=== PATIENT | female | born 1995 | race American Indian/Alaskan Native ===

== ENCOUNTER 2020-05-10 00:43 | Outpatient (CLI) | payer BC, MEDICAID ==
[2020-05-10 00:59] VITALS: BP 120/64
[2020-05-10] MEDS ORDERED: LACTATED RINGERS 1,000 ML ONE (01:29)
[2020-05-10] MEDS ORDERED: LACTATED RINGERS 1,000 ML IV ONE (01:42)
[2020-05-10 01:52] LABS: Basophils % (Auto) 0.6 % (0.0-1.8); Eosinophils # (Auto) 0.2 K/mm3 (0.0-0.4); Eosinophils % (Auto) 2.3 % (0.0-4.3); Hematocrit 29.3 % (30.3-42.9); Hemoglobin 9.7 gm/dl (10.1-14.3); Lymphocytes # (Auto) 2.6 K/mm3 (1.2-5.4); Mean Corpuscular HGB Conc 33 % (30-34); Mean Corpuscular Volume 87 fl (79-97); Monocytes # (Auto) 0.6 K/mm3 (0.0-0.8); Platelet Count 209 K/mm3 (140-440); Red Blood Count 3.35 M/mm3 (3.65-5.03); Red Cell Distribution Width 14.4 % (13.2-15.2)
[2020-05-10 02:11] LABS: Alanine Aminotransferase 7 units/L (7-56); Albumin 3.4 g/dL (3.9-5); Blood Urea Nitrogen 7 mg/dL (7-17); Calcium 8.8 mg/dL (8.4-10.2); Hemolysis Index 7
[2020-05-10 02:16] LABS: BUN/Creatinine Ratio 14
== END 2020-05-10 02:27 | disposition home or self-care (01) ==
LOC: TRG 00:43 → APU 00:57 → TRG 02:27
PROVIDERS: ATTEND Obstetrics & Gynecology
DX: O62.9 Abnormality of forces of labor, unspecified (principal); O21.2 Late vomiting of pregnancy; O26.893 Other specified pregnancy related conditions, third trimester; R19.7 Diarrhea, unspecified; Z3A.35 35 weeks gestation of pregnancy
CPT/HCPCS: 36415; 59025; 80053; 85025; J7120; 96360

== ENCOUNTER 2020-05-19 17:12 | Outpatient (CLI) | payer BC, MEDICAID ==
[2020-05-19 17:50] VITALS: BP 121/76
[2020-05-19] MEDS ORDERED: LACTATED RINGERS 1,000 ML IV SCH (18:00)
[2020-05-19 18:29] LABS: Bacteria,Urine 1+ /HPF (Negative); Bilirubin,Urine NEG (Negative); Blood,Urine NEG (Negative); Color,Urine Yellow (Yellow); Mucus,Urine 1+ /HPF; Protein,Urine <15 mg/dL mg/dL (Negative)
== END 2020-05-19 19:29 | disposition home or self-care (01) ==
LOC: TRG 17:12 → APU 17:13 → TRG 19:29
PROVIDERS: ATTEND Obstetrics & Gynecology
DX: O47.03 False labor before 37 completed weeks of gestation, third trimester (principal); Z3A.36 36 weeks gestation of pregnancy
CPT/HCPCS: 59025; 81001

== ENCOUNTER 2020-05-25 14:48 | Outpatient (CLI) | payer BC, MEDICAID ==
[2020-05-25 16:58] VITALS: BP 123/77
--- NOTE | 2020-05-25 17:57 | Ultrasound Report ---
US OB limited INDICATION: TERRA. Premature rupture of membranes TECHNIQUE: Transabdominal. COMPARISON: None available. FINDINGS: There is a single intrauterine . Heart Rate: 173 beats per minute. Position: cephalic. Amniotic Fluid Volume: normal Amniotic Fluid Index (TERRA) in cm (if calculated): 11. IMPRESSION: 1. Amniotic fluid is normal. Signer Name: Arnulfo Wiley MD Signed: 05/25/2020 5:52 PM Workstation Name: [id number]
== END 2020-05-25 19:16 | disposition home or self-care (01) ==
LOC: TRG 14:48 → APU 14:50 → TRG 19:16
PROVIDERS: ATTEND Obstetrics & Gynecology
DX: O41.8X30 Other specified disorders of amniotic fluid and membranes, third trimester, not applicable or unspecified (principal); Z3A.37 37 weeks gestation of pregnancy
CPT/HCPCS: 59025; 76815; Q0177

== ENCOUNTER 2020-06-02 22:01 | Inpatient (IN) | payer BC, MEDICAID ==
[2020-06-02] MEDS ORDERED: AMPICILLIN/NS 2 GM/100 ML 2 GM/100 ML BAG IV ONE (22:46)
[2020-06-02] MEDS ORDERED: ONDANSETRON 4 MG/2 ML INJ IV PRN (22:46)
[2020-06-02] MEDS ORDERED: ACETAMINOPHEN 325 MG TAB PO PRN (22:46)
[2020-06-02] MEDS ORDERED: miSOPROStol 200 MCG TAB PR PRN (22:46)
[2020-06-02] MEDS ORDERED: BUTORPHANOL 2 MG/1 ML INJ IV PRN (22:46)
[2020-06-02] MEDS ORDERED: ePHEDrine SULFATE 50 MG/1 ML INJ IV PRN (22:46)
[2020-06-02] MEDS ORDERED: METHYLERGONOVINE MALEATE 0.2 MG/ML VIAL IM PRN (22:46)
[2020-06-02] MEDS ORDERED: LIDOCAINE (2%) 20 MG/1 ML VIAL 20 ML MDV INFILTRATI ONE (22:46)
[2020-06-02] MEDS ORDERED: fentaNYL 100 MCG/2 ML INJ IV PRN (22:46)
[2020-06-02] MEDS ORDERED: TERBUTALINE 1 MG/1 ML INJ SUB-Q PRN (22:46)
[2020-06-02] MEDS ORDERED: MINERAL OIL 30 ML ORAL LIQD PO PRN (22:46)
[2020-06-02] MEDS ORDERED: OXYTOCIN DRIP 30 UNITS/500 ML BAG IV SCH ×2 (23:00)
[2020-06-02] MEDS ORDERED: LACTATED RINGERS 1,000 ML IV SCH (23:00)
[2020-06-02 23:38] LABS: Hematocrit 31.2 % (30.3-42.9); Hemoglobin 10.2 gm/dl (10.1-14.3); Mean Corpuscular HGB Conc 33 % (30-34); Mean Corpuscular Volume 84 fl (79-97); Platelet Count 237 K/mm3 (140-440); Red Blood Count 3.72 M/mm3 (3.65-5.03); Red Cell Distribution Width 15.7 % (13.2-15.2)
[2020-06-03] MEDS ORDERED: AZITHROMYCIN 250 MG TAB PO ONE (00:57)
[2020-06-03] MEDS ORDERED: ePHEDrine SULFATE 50 MG/1 ML INJ IV PRN (00:59)
[2020-06-03] MEDS ORDERED: NALOXONE 2 MG/2 ML INJ IV PRN (00:59)
[2020-06-03] MEDS ORDERED: fentaNYL-BUPIV 2 MCG/ML-0.125% 200 MCG/100 ML BAG EPIDURAL SCH (01:00)
--- NOTE | 2020-06-03 01:00 | Anesthesia Consultation ---
Anesthesia Consult and Med Hx Date of service: 06/03/20 - Airway Anesthetic Teeth Evaluation: Good ROM Head & Neck: Adequate Mental/Hyoid Distance: Adequate Mallampati Class: Class II Intubation Access Assessment: Probably Good - Pulmonary Exam CTA: Yes - Cardiac Exam Cardiac Exam: RRR - Pre-Operative Health Status ASA Pre-Surgery Classification: ASA2 Proposed Anesthetic Plan: Epidural - Pulmonary Hx Asthma: Yes COPD: No Hx Pneumonia: No - Cardiovascular System Hx Hypertension: No - Central Nervous System Hx Seizures: No Hx Psychiatric Problems: No - Endocrine Hx Renal Disease: No Hx End Stage Renal Disease: No Hx Hypothyroidism: No Hx Hyperthyroidism: No - Hematic Hx Anemia: No Hx Sickle Cell Disease: No - Other Systems Hx Alcohol Use: No
--- NOTE | 2020-06-03 01:12 | History and Physical Report ---
History of Present Illness Date of examination: 06/03/20 Date of admission: 06/02/20 22:46 Chief complaint: my water, contractions History of present illness: Pt is a 24 year old female KELLI 06/11/20 at 38w6d who presents with rupture of membranes at 2014 pm 06/02/20 and regular painful contractions. She denies vaginal bleeding. She has had care at [facility] since 10 wks complicated by history of previous x 1, prior successful , quad screen positive for trisomy 21 with low risk NIPT, positive chlamydia test on 05/18/20, and positive GBS status. 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 History: chlamydia (positive test 05/18/20) Family/Genetic History: none Social history: no significant social history - Obstetrical History Expected Date of Delivery: 06/11/20 Actual Gestation: 38 Week(s) 6 Day(s) : 3 Para: 2 Hx # Term Pregnancies: 1 Number of Pregnancies: 1 Spontaneous Abortions: 0 Induced : 0 Number of Living Children: 2 Medications and Allergies Allergies Allergy/AdvReac Type Severity Reaction Status Date / Time No Known Allergies Allergy Verified 05/19/20 17:52 Home Medications Medication Instructions Recorded Confirmed Last Taken Type No Known Home Medications [No 06/02/20 06/02/20 Unknown History Reported Home Medications] Active Meds: Active Medications Acetaminophen (Tylenol) 650 mg PO Q4H PRN PRN Reason: Pain, Mild (1-3) Butorphanol Tartrate (Stadol) 2 mg IV Q2H PRN PRN Reason: Pain , Severe (7-10) Ephedrine Sulfate (Ephedrine Sulfate) 10 mg IV Q2M PRN PRN Reason: Hypotension Fentanyl (Sublimaze) 100 mcg IV Q2H PRN PRN Reason: Pain,Severe (7-10) LABOR PAIN Oxytocin/Sodium Chloride (Pitocin/Ns 30 Unit/500ml) 30 units in 500 mls @ 2 mls/hr IV TITR SOFIA; Protocol Lactated Ringer's (Lactated Ringers) 1,000 mls @ 125 mls/hr IV DIRECT SOFIA Last Admin: 06/02/20 23:27 Dose: 125 mls/hr Documented by: Oxytocin/Sodium Chloride (Pitocin/Ns 30 Unit/500ml) 30 units in 500 mls @ 40 mls/hr IV TITR SOFIA; Protocol Ampicillin Sodium (Ampicillin/Ns 1 Gm/50 Ml) 1 gm in 50 mls @ 100 mls/hr IV Q4HR SOFIA; Protocol Fentanyl/Bupivacaine/Sodium Chlor (Fentanyl-Bupiv 2 Mcg/Ml-0.125%) 200 mcg in 100 mls @ 12 mls/hr EPIDURAL TITR SOFIA; Protocol Methylergonovine Maleate (Methergine) 0.2 mg IM ONCE PRN PRN Reason: Uterine Bleeding Mineral Oil (Mineral Oil) 30 ml PO QHS PRN PRN Reason: Constipation Misoprostol (Cytotec) 800 mcg WI ONCE PRN PRN Reason: Uterine Bleeding Naloxone HCl (Naloxone) 0.2 mg IV Q5M PRN PRN Reason: Respiratory sedation Ondansetron HCl (Zofran) 4 mg IV Q8H PRN PRN Reason: Nausea And Vomiting Terbutaline Sulfate (Brethine) 0.25 mg SUB-Q ONCE PRN PRN Reason: Hyperstimulation/Hypertonicity Review of Systems All systems: negative - Vital Signs Vital signs: Vital Signs Pulse Ox 84 05/25/20 18:15 Temp Pulse Resp BP Pulse Ox 98.7 F 95 H 16 129/79 100 06/02/20 22:27 06/03/20 01:00 06/02/20 22:27 06/03/20 01:00 06/03/20 00:57 - Physical Exam Breasts: Positive: deferred Abdomen: Positive: soft (gravid ) Uterus: Positive: enlarged (gravid ) Extremities: Positive: normal - Obstetrical FHR: auscultation normal Uterine Contraction Monitor Mode: External Cervical Dilatation: 5 (per RN on admission ) Uterine Contraction Pattern: Regular Uterine Tone Measurement Phase: Resting Uterine Contraction Intensity: Moderate Results Result Diagrams: 06/02/20 23:00 Abnormal lab results 06/02/20 Range/Units 23:00 MCH 27 L (28-32) pg RDW 15.7 H (13.2-15.2) % All other labs normal. Assessment and Plan A: IUP at 38w6d SROM Active Labor Previous x 1 Successful Chlamydia positive 05/18/20 GBS Positive P: Admit to labor and delivery Azithromycin 1g PO AROM- clear fluid. IUPC placed Ampicillin for GBS prophylaxis Routine intrapartum care
--- NOTE | 2020-06-03 01:15 | Progress Note ---
Labor Epidural - Labor Epidural Start Time: 01:05 Stop Time: 01:15 Performed by:: JAISON PARSONS Procedure: Patient is requesting epidural for labor pain. H&P, and labs reviewed. Procedure explained, questions answered, consent obtained. Patient in sitting position with blood pressure cuff and pulse ox on and working. Timeout performed immediately before start of procedure. Sterile betadine prep/drape. 3 mL 1% lidocaine skin wheal at L[3]-L[4]. 18-gauge IQcard epidural needle advanced to [id number] with saline at [7] cm. Epidural dexmedetomidine [30] mcg administered. Epidural catheter advanced to [12] cm, negative aspiration for blood and csf, negative test dose 3 ml 1.5% lidocaine with epinephrine. Sterile steri-strips and tegaderm applied, followed by tape reinforcement. Patient tolerated procedure well. Liyah LOPEZ
[2020-06-03] MEDS ORDERED: AMPICILLIN/NS 1 GM/50 ML 1 GM/50 ML BAG IV SCH (02:48)
--- NOTE | 2020-06-03 04:19 | Procedure Note ---
OB Delivery Note - Delivery Date of Delivery: 06/03/20 Surgeon: DAIN MONTENEGRO Estimated blood loss: other (600 mL) - Vaginal Delivery presentation: vertex Delivery position: OA Intrapartum events: PROM->1hr before delivery, uterine atony (s/p Methergine 0.2 mg IM and Cytotec 800 mcg per rectum ) Delivery augmentation: pitocin Delivery monitor: external FHT, internal uterine Route of delivery: Delivery placenta: spontaneous Delivery cord: nuchal cord (tight nuchal cord, doubly clamped and cut ) Episiotomy: none Delivery laceration: other (Bilateral periurethral lacerations hemostatic, Perineal abrasion hemostatic ) Anesthesia: epidural - Infant A at 1 minute: 7 at 5 minutes: 9 Gender: Male (3506g (7lb 12oz) @ 0353 am)
[2020-06-03] MEDS ORDERED: OXYTOCIN DRIP 30 UNITS/500 ML BAG IV SCH (05:58)
[2020-06-03] MEDS ORDERED: PROMETHAZINE 25 MG RECT SUPP PR PRN (05:58)
[2020-06-03] MEDS ORDERED: LANOLIN/ZINC/DIMETHICONE (LANSINOH) 7 GM TP PRN ×2 (05:58)
[2020-06-03] MEDS ORDERED: MAGNESIUM HYDROXIDE (MOM) ORAL LIQD UDC PO PRN (05:58)
[2020-06-03] MEDS ORDERED: diphenhydrAMINE 25 MG CAP PO PRN (05:58)
[2020-06-03] MEDS ORDERED: ONDANSETRON 4 MG/2 ML INJ IV PRN (05:58)
[2020-06-03] MEDS ORDERED: PROMETHAZINE 25 MG TAB PO PRN (05:58)
[2020-06-03] MEDS ORDERED: HYDROcodone/ACETAMINOPHEN 5-325 MG TAB PO PRN (05:58)
[2020-06-03] MEDS ORDERED: WITCH HAZEL/ GLYCERIN PAD TP PRN (05:58)
[2020-06-03] MEDS ORDERED: miSOPROStol 100 MCG TAB PR PRN (05:58)
[2020-06-03] MEDS ORDERED: BENZOCAINE/MENTHOL 20/0.5% TOP SPRAY 56 GM TP PRN (05:58)
[2020-06-03] MEDS: IBUPROFEN 600 MG TAB PO SCH ×3 (07:56→18:43)
[2020-06-03] MEDS: FERROUS SULFATE 325 MG TAB PO SCH ×2 (09:30→22:00)
[2020-06-03] MEDS: DOCUSATE SODIUM 100 MG CAP PO SCH ×2 (09:30→22:00)
--- NOTE | 2020-06-03 14:02 | Post Anesthesia Evaluation ---
- Post Anesthesia Evaluation Patient Participated: Yes Airway Patent: Yes Stable Respiratory Function: Yes Nausea/Vomiting: No Temp > 96.8F: Yes Pain Manageable: Yes Adequeate Hydration: Yes Anesthesia Complications: No Block Receding Appropriately: Yes
[2020-06-03 17:50] LABS: Hematocrit 29.3 % (30.3-42.9); Hemoglobin 9.8 gm/dl (10.1-14.3)
[2020-06-04] MEDS: IBUPROFEN 600 MG TAB PO SCH ×4 (00:05→23:16)
[2020-06-04] MEDS ORDERED: MEASLES, MUMPS & RUBELLA 12,500 UNIT/0.5 ML VACCINE SUB-Q ONE (04:20)
[2020-06-04] MEDS ORDERED: DIPHtheria,PERTUSSIS(ACELL),TETANUS VACCINE/PF 0.5 ML VIAL IM ONE (06:00)
--- NOTE | 2020-06-04 07:30 | Progress Note ---
Assessment and Plan A: PPD#1 s/p at term Asymptomatic anemia GBS positive, inadequately treated P: Routine care 48 hour stay Anticipate discharge tomorrow Subjective - Subjective Date of service: 06/04/20 Principal diagnosis: s/p at term Interval history: No overnight issues Patient reports: appetite normal, voiding normally, pain well controlled, ambulating normally [place]: doing well Objective - Vital Signs Latest vital signs: Vital Signs Temp Pulse Resp BP BP Pulse Ox 06/04/20 05:34 20 06/04/20 00:30 98.8 F 74 16 104/78 06/04/20 00:05 20 06/03/20 20:13 98.1 F 84 18 111/65 99 06/03/20 16:17 97.9 F 65 18 106/59 96 06/03/20 12:00 97.9 F 55 L 18 110/65 98 06/03/20 07:55 98.0 F 64 18 103/61 98 Intake and Output 06/03/20 06/04/20 06/04/20 22:59 06:59 14:59 Intake Total 300 300 Balance 300 300 Intake: Intake, Free Water 300 300 Other: # Voids Void 1 - Exam Breasts: Present: deferred Abdomen: Present: soft, distention (mild) Uterus: Present: fundal height at umbilicus Extremities: Present: normal - Labs Labs: Abnormal lab results 06/03/20 Range/Units 16:46 Hgb 9.8 L (10.1-14.3) gm/dl Hct 29.3 L (30.3-42.9) %
--- NOTE | 2020-06-04 07:31 | Discharge Summary ---
Providers - Providers Date of Admission: 06/02/20 22:46 Date of discharge: 06/05/20 Attending physician: DAIN MONTENEGRO 06/03/20 05:58 Consult to Fly Fishing Guide [CONS] Routine Reason For Exam: assistance with , SNS Primary care physician: DAIN MONTENEGRO Hospitalization Reason for admission: active labor, rupture of membranes Delivery: Procedure details: Please see delivery note. Episiotomy: none Laceration: other (Bilateral periurethral lacerations and perineal abrasion ) Other procedures: none complications: none Discharge diagnosis: IUP at term delivered baby: male Hospital course: Pt was admitted with ruptured membranes and in active labor. She went on to have a vaginal after () which she tolerated well. Her course was complicated by uterine atony and hemorrhage. She met discharge criteria on PPD#1. Condition at discharge: Stable Disposition: DC-01 TO HOME OR SELFCARE - Discharge Diagnoses (1) Vaginal after delivery Status: Acute (2) Acute blood loss anemia Status: Acute (3) Term of male Status: Acute Plan - Discharge Medications Prescriptions: Ferrous Sulfate [Feosol 325 MG tab] 325 mg PO BID #60 tablet Ibuprofen [Motrin] 600 mg PO Q6H PRN #60 tablet PRN Reason: Pain - Provider Discharge Summary Activity: routine, no sex for 6 weeks, no heavy lifting 4 weeks, no strenuous exercise Diet: routine Additional instructions: [] Smoking cessation referral if applicable(refer to patient education folder for contact #) [] Refer to [facility] Booklet Call your doctor immediately for: * Fever > 100.5 * Heavy vaginal bleeding ( >1 pad per hour) * Severe persistent headache * Shortness of breath * Reddened, hot, painful area to leg or breast * Drainage or odor from incision. * Keep incision clean and dry at all times and follow doctor's instructions regarding bathing/showering - Follow up plan Follow up: KARL MACKENZIE NP [Advanced Practice Nurse] - 07/01/20 (Please call to schedule your appt Please schedule your son's circumcision before he is one month old. )
[2020-06-04] MEDS: DOCUSATE SODIUM 100 MG CAP PO SCH ×2 (10:10→23:16)
[2020-06-04] MEDS: FERROUS SULFATE 325 MG TAB PO SCH ×2 (10:15→23:17)
[2020-06-05] MEDS: IBUPROFEN 600 MG TAB PO SCH (05:11)
[2020-06-05 16:18] VITALS: BP 123/79
== END 2020-06-05 15:30 | disposition home or self-care (01) | DRG 806 ==
LOC: APU 22:01 → TRG 22:01 → LD 22:46 → TRG 22:46 → OB 06-03 06:00
PROVIDERS: ADMIT Obstetrics & Gynecology; ATTEND Obstetrics & Gynecology
PROC: 10E0XZZ Delivery of Products of Conception, External Approach (ICD-10-PCS; principal; 2020-06-03)
PROC: 3E0R3BZ Introduction of Anesthetic Agent into Spinal Canal, Percutaneous Approach (ICD-10-PCS; 2020-06-03)
PROC: 00HU33Z Insertion of Infusion Device into Spinal Canal, Percutaneous Approach (ICD-10-PCS; 2020-06-03)
PROC: 10907ZC Drainage of Amniotic Fluid, Therapeutic from Products of Conception, Via Natural or Artificial Opening (ICD-10-PCS; 2020-06-03)
PROC: 10H07YZ Insertion of Other Device into Products of Conception, Via Natural or Artificial Opening (ICD-10-PCS; 2020-06-03)
PROC: 3E0P7VZ Introduction of Hormone into Female Reproductive, Via Natural or Artificial Opening (ICD-10-PCS; 2020-06-03)
PROC: 3E0234Z Introduction of Serum, Toxoid and Vaccine into Muscle, Percutaneous Approach (ICD-10-PCS; 2020-06-04)
DX: O42.92 Full-term premature rupture of membranes, unspecified as to length of time between rupture and onset of labor (principal); O98.82 Other maternal infectious and parasitic diseases complicating childbirth; Z37.0 Single live birth; D62 Acute posthemorrhagic anemia; O72.1 Other immediate postpartum hemorrhage; O34.211 Maternal care for low transverse scar from previous cesarean delivery; Z3A.38 38 weeks gestation of pregnancy; Z20.828 Contact with and (suspected) exposure to other viral communicable diseases; Z23 Encounter for immunization; O99.52 Diseases of the respiratory system complicating childbirth; J45.909 Unspecified asthma, uncomplicated; O99.824 Streptococcus B carrier state complicating childbirth; O69.1XX0 Labor and delivery complicated by cord around neck, with compression, not applicable or unspecified; O71.82 Other specified trauma to perineum and vulva; O90.81 Anemia of the puerperium
CPT/HCPCS: 36415; 59025; 85014; 85018; 85027; 86592; 86706; 86762; 86850; 86900; 86901; 87806; 96360; G0378; J0290; J2210; J2590; J7120; U0003

== ENCOUNTER 2021-09-23 10:55 | Outpatient (CLI) | payer BC, MEDICAID ==
[2021-09-23] MEDS ORDERED: BETAMET ACET/BETAMET NA PH 6 MG/ML INJ 5 ML MDV IM SCH (12:00)
== END 2021-09-23 11:35 | disposition home or self-care (01) ==
LOC: APU 10:55 → TRG 10:55
PROVIDERS: ATTEND Obstetrics & Gynecology
DX: Z34.92 Encounter for supervision of normal pregnancy, unspecified, second trimester (principal); Z3A.26 26 weeks gestation of pregnancy
CPT/HCPCS: 59025; J0702

== ENCOUNTER 2021-09-24 11:44 | Outpatient (CLI) | payer MEDICAID ==
[2021-09-24 12:02] VITALS: BP 126/63
[2021-09-24] MEDS ORDERED: BETAMET ACET/BETAMET NA PH 6 MG/ML INJ 5 ML MDV IM ONE (12:30)
== END 2021-09-24 12:20 | disposition home or self-care (01) ==
LOC: TRG 11:44 → APU 11:45 → TRG 12:20
PROVIDERS: ATTEND Obstetrics & Gynecology
DX: Z34.92 Encounter for supervision of normal pregnancy, unspecified, second trimester (principal); Z3A.26 26 weeks gestation of pregnancy
CPT/HCPCS: 96372; J0702; 59025

== ENCOUNTER 2021-12-15 22:36 | Inpatient (IN) | payer MEDICAID ==
[2021-12-16] MEDS ORDERED: AMPICILLIN/NS 2 GM/100 ML 2 GM/100 ML BAG IV ONE (00:10)
[2021-12-16] MEDS ORDERED: ACETAMINOPHEN 325 MG TAB PO PRN (00:10)
[2021-12-16] MEDS ORDERED: miSOPROStol 200 MCG TAB PR PRN (00:10)
[2021-12-16] MEDS ORDERED: TERBUTALINE 1 MG/1 ML INJ SUB-Q PRN (00:10)
[2021-12-16] MEDS ORDERED: METHYLERGONOVINE MALEATE 0.2 MG/ML VIAL IM PRN (00:10)
[2021-12-16] MEDS ORDERED: OXYTOCIN 10 UNIT/1 ML INJ IM PRN (00:10)
[2021-12-16] MEDS ORDERED: BUTORPHANOL 2 MG/1 ML INJ IV PRN (00:10)
[2021-12-16] MEDS ORDERED: ePHEDrine SULFATE 50 MG/1 ML INJ IV PRN (00:10)
[2021-12-16] MEDS ORDERED: LOPERAMIDE 2 MG CAP PO PRN (00:10)
[2021-12-16] MEDS ORDERED: MINERAL OIL 30 ML ORAL LIQD PO PRN (00:10)
[2021-12-16] MEDS ORDERED: CARBOPROST TROMETHAMINE 250 MCG/1 ML INJ IM PRN (00:10)
[2021-12-16] MEDS ORDERED: fentaNYL 100 MCG/2 ML INJ IV PRN (00:10)
[2021-12-16] MEDS ORDERED: NalbUPHINE 10 MG/1 ML INJ IV PRN (00:10)
[2021-12-16] MEDS ORDERED: LACTATED RINGERS 1,000 ML IV SCH (00:15)
[2021-12-16 00:24] LABS: Hematocrit 32.1 % (30.3-42.9); Hemoglobin 10.5 gm/dl (10.1-14.3); Mean Corpuscular HGB Conc 33 % (30-34); Mean Corpuscular Volume 84 fl (79-97); Platelet Count 170 K/mm3 (140-440); Red Blood Count 3.81 M/mm3 (3.65-5.03); Red Cell Distribution Width 17.9 % (13.2-15.2)
[2021-12-16] MEDS ORDERED: OXYTOCIN DRIP 30,000 MILLIUNITS/500 ML BAG IV ONE ×2 (00:46→01:38)
[2021-12-16] MEDS ORDERED: PROMETHAZINE 25 MG TAB PO PRN (01:31)
[2021-12-16] MEDS ORDERED: MAGNESIUM HYDROXIDE (MOM) ORAL LIQD UDC PO PRN (01:31)
[2021-12-16] MEDS ORDERED: ONDANSETRON 4 MG/2 ML INJ IV PRN (01:31)
[2021-12-16] MEDS ORDERED: WITCH HAZEL/ GLYCERIN PAD TP PRN (01:31)
[2021-12-16] MEDS ORDERED: LANOLIN/ZINC/DIMETHICONE (LANSINOH) 7 GM TP PRN (01:31)
[2021-12-16] MEDS ORDERED: diphenhydrAMINE 25 MG CAP PO PRN (01:31)
--- NOTE | 2021-12-16 01:40 | History and Physical Report ---
History of Present Illness Date of admission: 12/15/21 23:23 Chief complaint: 12/15/2021 History of present illness: 26 yo, @ 37.6 wks, initiated care with [facility] at 10.3 wks gestation. has been complicated by +GBS status and previous C/S x 1. She presents to [facility] with reports of frequent painful ctxs. Reports +FM. Denies any VB or LOF. Labs: O+, antibody negative; rubella immune; VDRL non-reactive; urine culture negative; HBsAg negative; HIV negative; HSV2 negative; GC/Chlamydia/Trich negative; NIPT low-risk; 1 hr gtt 106; GBS positive. Past History Past Medical History: asthma Past Surgical History: section (x 1) Family/Genetic History: none Social history: single, full code. denies: smoking, alcohol abuse, prescription drug abuse, IV drug use - Obstetrical History Expected Date of Delivery: 12/31/21 Actual Gestation: 37 Week(s) 6 Day(s) : 4 Para: 3 Hx # Term Pregnancies: 3 Number of Pregnancies: 0 Spontaneous Abortions: 0 Induced : 0 Number of Living Children: 3 Medications and Allergies Allergies Allergy/AdvReac Type Severity Reaction Status Date / Time No Known Allergies Allergy Verified 12/15/21 23:53 Home Medications Medication Instructions Recorded Confirmed Last Taken Type Ferrous Sulfate [Feosol 325 MG tab] 325 mg PO BID #60 tablet 06/03/20 09/24/21 0 09/24/21 08:00 Rx Active Meds: Active Medications Acetaminophen (Acetaminophen 325 Mg Tab) 650 mg PO Q4H PRN PRN Reason: Pain, Mild (1-3) Butorphanol Tartrate (Butorphanol 2 Mg/1 Ml Inj) 1 mg IV Q2H PRN PRN Reason: Pain, Moderate(4-6) LABOR PAIN Carboprost Tromethamine (Carboprost Tromethamine 250 Mcg/1 Ml Inj) 250 mcg IM ONCE PRN PRN Reason: Uterine Bleeding Ephedrine Sulfate (Ephedrine Sulfate 50 Mg/1 Ml Inj) 10 mg IV Q2M PRN PRN Reason: Hypotension Fentanyl (Fentanyl 100 Mcg/2 Ml Inj) 100 mcg IV Q2H PRN PRN Reason: Pain,Severe (7-10) LABOR PAIN Lactated Ringer's (Lactated Ringers) 1,000 mls @ 125 mls/hr IV DIRECT SOFIA Loperamide HCl (Loperamide 2 Mg Cap) 2 mg PO ONCE PRN PRN Reason: give with Hemabate Methylergonovine Maleate (Methylergonovine Maleate 0.2 Mg/Ml Vial) 0.2 mg IM ONCE PRN PRN Reason: Uterine Bleeding Mineral Oil (Mineral Oil 30 Ml Oral Liqd) 30 ml PO QHS PRN PRN Reason: Constipation Misoprostol (Misoprostol 200 Mcg Tab) 800 mcg DE ONCE PRN PRN Reason: Uterine Bleeding Nalbuphine HCl (Nalbuphine 10 Mg/1 Ml Inj) 10 mg IV Q2H PRN PRN Reason: Pain, Moderate (4-6) Oxytocin (Oxytocin 10 Unit/1 Ml Inj) 10 unit IM ONCE PRN PRN Reason: Uterine Bleeding Terbutaline Sulfate (Terbutaline 1 Mg/1 Ml Inj) 0.25 mg SUB-Q ONCE PRN PRN Reason: Hyperstimulation/Hypertonicity - Vital Signs Vital signs: Vital Signs Pulse BP Pulse Ox 98 H 124/83 100 12/15/21 22:59 12/15/21 22:59 12/15/21 22:59 Temp Pulse Resp BP Pulse Ox 98.6 F 71 18 111/67 100 12/15/21 23:59 12/16/21 01:02 12/15/21 23:59 12/16/21 01:02 12/16/21 01:02 - Physical Exam Breasts: Positive: normal Cardiovascular: Regular rate Lungs: Positive: Normal air movement Abdomen: Positive: soft Genitourinary (Female): Positive: normal external genitalia, normal perenium Uterus: Positive: enlarged (U-3) Extremities: Positive: normal Deep Tendon Reflex Grade: Normal +2 Results Result Diagrams: 12/16/21 00:03 Abnormal lab results 12/16/21 Range/Units 00:03 RDW 17.9 H (13.2-15.2) % All other labs normal. Assessment and Plan - Patient Problems (1) Vaginal after delivery Current Visit: No Status: Acute Plan to address problem: Transfer to M/B Pain meds as needed (2) Anemia Current Visit: Yes Status: Acute Qualifiers: Anemia type: iron deficiency Plan to address problem: Asymptomatic
[2021-12-16] MEDS: oxyCODONE /ACETAMINOPHEN 5-325MG TAB PO PRN ×2 (01:48→21:32)
--- NOTE | 2021-12-16 01:48 | Procedure Note ---
OB Delivery Note - Delivery Date of Delivery: 12/16/21 (0050) Surgeon: NIKA JERNIGAN (CNMarina) Estimated blood loss: 300cc - Vaginal Delivery presentation: vertex Delivery position: OA Intrapartum events: precipitous labor- <3hr Delivery induction: none Delivery augmentation: rupture of membranes (AROM @ 0048) Delivery monitor: external FHT, external uterine Route of delivery: Delivery placenta: spontaneous (0054, martinez) Delivery cord: 3 umbilical vessels Episiotomy: none Delivery laceration: none Anesthesia: none Delivery comments: Precipitous delivery of viable male infant, placed directly to maternal abdomen. Cord double clamped, cut. Cord blood collcected and sent to lab. Placenta spontaneously delivered, disposed per hospital policy. Uterus firm @ U-3, hemostatsis maintained. Perineum intact. Mother and baby safe, stable and left in care of RN. - Infant A at 1 minute: 7 at 5 minutes: 8 Gender: Male (Weight: 2960 gms (6lbs 8ozs) 19.5 inches)
[2021-12-16] MEDS ORDERED: OXYTOCIN DRIP 30 UNITS/500 ML BAG IV SCH (04:00)
[2021-12-16] MEDS: IBUPROFEN 800 MG TAB PO SCH ×4 (05:53→22:21)
--- NOTE | 2021-12-16 08:20 | Progress Note ---
Assessment and Plan - Patient Problems (1) Vaginal after delivery Current Visit: No Status: Acute Plan to address problem: Patient doing well Continue care Subjective - Subjective Date of service: 12/16/21 Interval history: The patient is currently without any significant complaints. Her pain is being managed adequately. Patient reports: appetite normal, voiding normally, pain well controlled [place]: doing well Objective - Vital Signs Latest vital signs: Vital Signs Temp Pulse Resp BP BP Pulse Ox Pulse Ox 12/16/21 06:53 18 12/16/21 05:10 60 123/62 12/16/21 02:48 18 12/16/21 02:37 99.0 F 62 18 125/75 100 100 12/16/21 02:19 77 115/73 12/16/21 02:04 68 99 12/16/21 01:54 68 114/70 12/16/21 01:02 71 111/67 100 12/16/21 00:57 86 99 12/16/21 00:52 79 99 12/16/21 00:47 76 100 12/16/21 00:42 98 H 100 12/16/21 00:37 93 H 98 12/16/21 00:32 86 98 12/16/21 00:27 85 97 12/16/21 00:22 86 96 12/16/21 00:17 86 97 12/16/21 00:12 78 98 12/16/21 00:07 90 99 12/16/21 00:02 90 97 12/16/21 00:01 78 108/59 12/15/21 23:59 98.6 F 95 H 18 108/59 98 12/15/21 23:57 87 98 12/15/21 23:54 99 12/15/21 23:52 93 H 94 12/15/21 23:47 98 H 99 12/15/21 23:42 88 98 12/15/21 23:29 93 H 100 12/15/21 23:24 86 98 12/15/21 23:19 90 99 12/15/21 23:14 104 H 100 12/15/21 23:09 86 100 12/15/21 23:04 98 H 100 12/15/21 22:59 98 H 124/83 100 Intake and Output 12/15/21 12/16/21 12/16/21 22:59 06:59 14:59 Intake Total 360 Output Total 300 Balance 60 Intake: Oral 120 Intake, Free Water 240 Output: Urine 300 Void 300 Other: Total, Intake Amount 120 Total, Output Amount 300 # Voids Void 1 Weight 80.286 kg Estimated Blood Loss 300 - Labs Labs: Abnormal lab results 12/16/21 Range/Units 00:03 RDW 17.9 H (13.2-15.2) %
[2021-12-16] MEDS ORDERED: PRENATAL VIT27-FE FUMARATE-FOLIC ACID VIT TAB PO SCH (10:00)
[2021-12-16 17:17] LABS: Hematocrit 31.4 % (30.3-42.9); Hemoglobin 10.2 gm/dl (10.1-14.3)
[2021-12-17] MEDS: IBUPROFEN 800 MG TAB PO SCH ×2 (01:11→05:47)
[2021-12-17 08:50] VITALS: BP 120/71
--- NOTE | 2021-12-17 09:02 | Progress Note ---
Assessment and Plan - Patient Problems (1) Vaginal after delivery Current Visit: No Status: Acute Plan to address problem: Patient doing well Discharge home Subjective - Subjective Date of service: 12/17/21 Interval history: The patient is currently without any significant complaints. Patient reports: appetite normal, voiding normally, pain well controlled : doing well Objective - Vital Signs Latest vital signs: Vital Signs Temp Pulse Resp BP Pulse Ox Pulse Ox 12/17/21 08:10 98 12/17/21 08:04 97.9 F 64 20 120/71 100 12/17/21 06:42 18 12/17/21 05:47 18 12/17/21 01:11 18 12/17/21 01:08 98.2 F 89 20 122/78 99 12/16/21 23:21 18 12/16/21 22:32 18 12/16/21 22:21 18 12/16/21 21:32 18 12/16/21 20:22 100 12/16/21 16:45 97.4 F L 85 18 102/61 98 12/16/21 13:05 97.6 F 76 18 105/56 98 Intake and Output 12/16/21 12/17/21 12/17/21 22:59 06:59 14:59 Intake Total 240 Balance 240 Intake: Oral 240 Other: Total, Intake Amount 240 # Voids Void 1 1
--- NOTE | 2021-12-17 09:03 | Discharge Summary ---
Providers - Providers Date of Admission: 12/15/21 23:23 Date of discharge: 12/17/21 Attending physician: DAIN MONTENEGRO Primary care physician: DAIN MONTENEGRO Hospitalization Reason for admission: active labor Delivery: Discharge diagnosis: IUP at term delivered Hospital course: The patient was admitted to labor and had a successful vaginal after . Her course was uneventful Condition at discharge: Good Disposition: 01 HOME / SELF CARE / HOMELESS - Discharge Diagnoses (1) Vaginal after delivery Status: Acute Plan - Discharge Medications Prescriptions: Ibuprofen [Motrin] 800 mg PO Q8HR PRN #30 tablet PRN Reason: Pain , Severe (7-10) HYDROcodone/APAP 5-325 [[place] 5/325] 1 each PO Q6HR PRN #15 tablet PRN Reason: Pain - Provider Discharge Summary Activity: no sex for 6 weeks, no heavy lifting 4 weeks, no strenuous exercise Diet: routine Instructions: routine Additional instructions: [] Smoking cessation referral if applicable(refer to patient education folder for contact #) [] Refer to [facility] Booklet Call your doctor immediately for: * Fever > 100.5 * Heavy vaginal bleeding ( >1 pad per hour) * Severe persistent headache * Shortness of breath * Reddened, hot, painful area to leg or breast * Schedule visit in 4 weeks - Follow up plan
== END 2021-12-17 09:30 | disposition home or self-care (01) | DRG 775 ==
LOC: TRG 22:36 → LD 22:37 → APU 22:41 → LD 23:23 → TRG 23:23 → OB 12-16 02:51
PROVIDERS: ADMIT Obstetrics & Gynecology; ATTEND Obstetrics & Gynecology
PROC: 10E0XZZ Delivery of Products of Conception, External Approach (ICD-10-PCS; principal; 2021-12-16)
PROC: 10907ZC Drainage of Amniotic Fluid, Therapeutic from Products of Conception, Via Natural or Artificial Opening (ICD-10-PCS; 2021-12-16)
DX: O34.211 Maternal care for low transverse scar from previous cesarean delivery (principal); Z3A.37 37 weeks gestation of pregnancy; O99.824 Streptococcus B carrier state complicating childbirth; O99.02 Anemia complicating childbirth; O62.3 Precipitate labor; Z37.0 Single live birth
CPT/HCPCS: 36415; 85014; 85018; 85027; 86592; 86850; 86900; 86901; G0378; J0290; J2590; J7120; U0003